=== PATIENT | female | born 1955 | race Caucasian/White ===

== ENCOUNTER 2017-08-03 12:36 | Emergency (ER) | payer BC ==
[~2017-08-03] VITALS: Ht 154.9 cm; Wt 90.0 kg
[2017-08-03] MEDS ORDERED: methylPREDNISolone SOD SUCC 125 MG/2 ML VIAL IV PUSH ONE (12:45)
[2017-08-03] MEDS ORDERED: SODIUM CHLORIDE 0.9% FLUSH 10 ML FLUSH IVF PRN (12:45)
[2017-08-03 12:47] VITALS: BP 157/70; PULSE 93; RESP 20; TEMP 98.9; O2SAT 97
[2017-08-03] MEDS: RESP: ALBUTEROL 2.5 MG/IPRATROPIUM 0.5 MG NEB (SCH) INH ×2 (12:57→12:58)
[2017-08-03 13:03] LABS: AUTOMATED NEUTROPHIL # 3.6 TH/MM3 (1.8-7.7); BASOPHIL % 0.6 % (0.0-2.0); EOSINOPHIL # 0.1 TH/MM3 (0-0.4); EOSINOPHIL % 1.8 % (0.0-4.0); HEMATOCRIT 35.5 % (35.0-46.0); HEMO FLAGS DIFF FINAL; LYMPH % 24.2 % (9.0-44.0); LYMPHOCYTE # 1.4 TH/MM3 (1.0-4.8); MEAN CELL VOLUME 87.4 FL (80.0-100.0); MEAN CORPUSCULAR HEMOGLOBIN 29.1 PG (27.0-34.0); MEAN CORPUSCULAR HGB CONC 33.3 % (32.0-36.0); MONO % 9.8 % (0.0-8.0); NEUT % 63.6 % (16.0-70.0); PLATELET COUNT 358 TH/MM3 (150-450); RED BLOOD COUNT 4.07 MIL/MM3 (4.00-5.30); RED CELL DISTRIBUTION WIDTH 13.1 % (11.6-17.2); WHITE BLOOD COUNT 5.6 TH/MM3 (4.0-11.0)
[2017-08-03 13:04] VITALS: BP 134/79; PULSE 85; RESP 18; RESP 30; O2SAT 100
[2017-08-03] MEDS ORDERED: AMIT50TA3 PO (13:04)
[2017-08-03] MEDS ORDERED: TEGR200T PO ×2 (13:04)
[2017-08-03] MEDS ORDERED: OMEP40CA2 PO (13:04)
[2017-08-03] MEDS ORDERED: NEUR600T PO (13:04)
[2017-08-03] MEDS ORDERED: LIPI10TA PO (13:04)
[2017-08-03] MEDS ORDERED: VENTAER INH ×2 (13:06→14:20)
[2017-08-03] MEDS ORDERED: ALBU.5I NEB (13:06)
[2017-08-03] MEDS ORDERED: FLUT1INH INH ×2 (13:06→14:20)
[2017-08-03 13:07] LABS: POTASSIUM 3.8 MEQ/L (3.5-5.1)
[2017-08-03] MEDS ORDERED: SPIRCAP INH ×2 (13:07→14:20)
[2017-08-03 13:10] LABS: BICARBONATE 21.6 MEQ/L (21.0-32.0)
--- NOTE | 2017-08-03 13:14 | PD ---
HPI Chief Complaint: Respiratory Symptoms Time Seen by Provider: 12:45 Travel History International Travel<30 days: No Contact w/Intl Traveler<30days: No Traveled to known affect area: No History of Present Illness HPI This [age]-year-old female is complaining of shortness of breath. She has a history of asthma and feels she's having an asthma attack. She flew here from [place] yesterday started feeling short of breath when she got here. He uses inhalers and nebulizers. She has been on steroids in the past but is not on them now [facility] Past Medical History Asthma: Yes Diminished Hearing: No Respiratory: Yes Influenza Vaccination: Yes ?: Not Social History Alcohol Use: No Tobacco Use: No Allergies-Medications (Allergen,Severity, Reaction): Coded Allergies: meperidine (Verified Allergy, Severe, Numbness, 08/03/17) phenytoin (Verified Allergy, Severe, Rash, 08/03/17) sumatriptan (Verified Allergy, Severe, Tachycardia, 08/03/17) Reported Meds & Prescriptions Reported Meds & Active Scripts Active Reported Spiriva Handihaler (Tiotropium Inh) 18 Mcg Cap 18 Mcg INH DAILY 1 capsule = 18 mcg Breo Ellipta Inh (Fluticasone/Vilanterol) 100-25 Mcg/Act Inh 1 Puff INH DAILY Use daily at the same time. Ventolin Hfa 18 GM Inh (Albuterol Sulfate) 90 Mcg/Act Aer 2 Puff INH Q4H PRN Albuterol Neb (Albuterol Sulfate) 2.5 Mg/0.5 Ml Neb 2.5 Mg NEB TID NEB PRN Note: The Albuterol Sulfate Inhalation Solution is concentrated and must be diluted. Read complete instructions carefully before using. Amitriptyline (Amitriptyline HCl) 50 Mg Tab 100 Mg PO HS Omeprazole 40 Mg Cap 40 Mg PO DAILY Neurontin (Gabapentin) 600 Mg Tab 600 Mg PO TID Lipitor (Atorvastatin Calcium) 10 Mg Tab 10 Mg PO HS Tegretol (Carbamazepine) 200 Mg Tab 100 Mg PO HS Tegretol (Carbamazepine) 200 Mg Tab 200 Mg PO DAILY Review of Systems General / Constitutional: No: Fever, Chills Eyes: No: Diploplia HENT: No: Headaches, Vertigo Cardiovascular: No: Chest Pain or Discomfort, Palpitations Respiratory: Positive: Shortness of Breath Gastrointestinal: No: Vomiting, Diarrhea Genitourinary: No: Urgency, Frequency Musculoskeletal: No: Myalgias, Arthralgias Skin: No Rash, No Itching Physical Exam Narrative GENERAL: Patient arrives in moderate respiratory distress. Oxygen saturation is 97% SKIN: Focused skin assessment warm/dry. HEAD: Atraumatic. Normocephalic. EYES: Pupils equal and round. No scleral icterus. No injection or drainage. ENT: No nasal bleeding or discharge. Mucous membranes pink and moist. NECK: Trachea midline. No JVD. CARDIOVASCULAR: Regular rate and rhythm. No murmur appreciated. RESPIRATORY: There is accessory muscle use. There are scattered wheezes. Breath sounds equal bilaterally. GASTROINTESTINAL: Abdomen soft, non-tender, nondistended. Hepatic and splenic margins not palpable. MUSCULOSKELETAL: No obvious deformities. No clubbing. No cyanosis. No edema. NEUROLOGICAL: Awake and alert. No obvious cranial nerve deficits. Motor grossly within normal limits. Normal speech. PSYCHIATRIC: Appropriate mood and affect; insight and judgment normal. Data Data Last Documented VS Vital Signs Date Time Temp Pulse Resp B/P (MAP) Pulse Ox O2 Delivery O2 Flow Rate FiO2 08/03/17 13:04 85 30 134/79 (97) 100 Room Air 08/03/17 12:47 98.9 Orders Orders Complete Blood Count With Diff (08/03/17 12:45) Basic Metabolic Panel (Bmp) (08/03/17 12:45) Iv Access Insert/Monitor (08/03/17 12:45) Ecg Monitoring (08/03/17 12:45) Oximetry (08/03/17 12:45) Oxygen Administration (08/03/17 12:45) Sodium Chloride 0.9% Flush (Ns Flush) (08/03/17 12:45) Methylprednisolone So Succ Inj (Solumedr (08/03/17 12:45) Albuterol-Ipratropium Neb (Duoneb Neb) (08/03/17 12:45) Lorazepam Inj (Ativan Inj) (08/03/17 14:00) Labs Laboratory Tests Test 08/03/17 12:45 White Blood Count 5.6 TH/MM3 Red Blood Count 4.07 MIL/MM3 Hemoglobin 11.9 GM/DL Hematocrit 35.5 % Mean Corpuscular Volume 87.4 FL Mean Corpuscular Hemoglobin 29.1 PG Mean Corpuscular Hemoglobin Concent 33.3 % Red Cell Distribution Width 13.1 % Platelet Count 358 TH/MM3 Mean Platelet Volume 8.5 FL Neutrophils (%) (Auto) 63.6 % Lymphocytes (%) (Auto) 24.2 % Monocytes (%) (Auto) 9.8 % Eosinophils (%) (Auto) 1.8 % Basophils (%) (Auto) 0.6 % Neutrophils # (Auto) 3.6 TH/MM3 Lymphocytes # (Auto) 1.4 TH/MM3 Monocytes # (Auto) 0.5 TH/MM3 Eosinophils # (Auto) 0.1 TH/MM3 Basophils # (Auto) 0.0 TH/MM3 CBC Comment DIFF FINAL Differential Comment Blood Urea Nitrogen 12 MG/DL Creatinine 0.99 MG/DL Random Glucose 79 MG/DL Calcium Level 8.6 MG/DL Sodium Level 130 MEQ/L Potassium Level 3.8 MEQ/L Chloride Level 97 MEQ/L Carbon Dioxide Level 21.6 MEQ/L Anion Gap 11 MEQ/L Estimat Glomerular Filtration Rate 57 ML/MIN MDM Medical Decision Making Medical Screen Exam Complete: Yes Emergency Medical Condition: Yes Medical Record Reviewed: Yes Differential Diagnosis Different she'll includes hyperventilation, asthma, Narrative Course Lab work is unremarkable. She's been given breathing treatments and Solu- Medrol. The wheezing she had has improved and then she is continued to breathe hard and is complaining of some paresthesias. Her saturations are 100%. At this point I believe she is having some hyperventilation and given some Ativan. Eddie Franklin MD Aug 03, 2017 13:14
[2017-08-03] MEDS ORDERED: LORazepam 2 MG/ML VIAL IV PUSH ONE (14:00)
[2017-08-03] MEDS ORDERED: carBAMazepine 200 MG TAB PO ONE (14:15)
[2017-08-03] MEDS ORDERED: IPRASOL INH (14:20)
[2017-08-03] MEDS ORDERED: PRED20 PO (14:22)
[2017-08-03 14:25] VITALS: BP 119/66
== END 2017-08-03 14:47 | disposition home or self-care (01) ==
LOC: PHED 12:36
DX: J45.909 Unspecified asthma, uncomplicated (principal)
CPT/HCPCS: 80048; 85025; 94640; 94664; 96374; 96375; 99284; J2060; J2930